=== PATIENT | male | born 1950 | race Caucasian/White ===

== ENCOUNTER 2018-08-02 22:12 | Emergency (ER) | payer OTHER ==
[~2018-08-02] VITALS: Ht 177.8 cm; Wt 102.5 kg
[2018-08-02 22:40] LABS: ABSOLUTE NEUTROPHILS 7.9 thou/uL (1.4-8.2); BASOPHILS 0.3 % (0.0-2.0); EOSINOPHILS 0.5 % (0.0-3.0); HEMATOCRIT 28.8 % (42.0-52.0); HEMOGLOBIN 9.9 gm/dL (14.0-18.0); LYMPHOCYTES 8.5 % (24.0-44.0); MCH 30.5 pg (26.0-34.0); MCHC 34.3 g/dL (28.0-37.0); MCV 88.8 fL (80.0-100.0); MONOCYTES 10.4 % (1.0-8.0); PLATELET COUNT 267 thou/uL (150-400); POLYS 80.3 % (36.0-66.0); RBC 3.24 mil/uL (4.50-6.00); RDW 12.8 % (10.5-14.5); WBC 9.8 thou/uL (4.0-11.0)
[2018-08-02 22:45] LABS: CALCIUM 8.8 mg/dL (8.5-10.1); CREATININE 1.6 mg/dL (0.7-1.3); POTASSIUM 3.8 mmol/L (3.5-5.1)
[2018-08-03] MEDS ORDERED: CLONIDINE HCL0.3 M3 PO (00:24)
[2018-08-03] MEDS ORDERED: MAXZIDE-25 MG1 EACH PO (00:27)
[2018-08-03] MEDS ORDERED: CARVEDILOL12.5 MG PO (00:28)
[2018-08-03] MEDS ORDERED: AMLODIPINE BESY10 MG PO (00:29)
[2018-08-03] MEDS ORDERED: SYNTHROID25 MC1 PO (00:29)
[2018-08-03] MEDS ORDERED: COZAAR 25 MG TA25 M1 PO (00:29)
[2018-08-03] MEDS ORDERED: METFORMIN HCL500 MG PO (00:30)
[2018-08-03 01:27] VITALS: BP 128/74
--- NOTE | 2018-08-03 08:29 | EKG ---
[place] [address] [facility] [place] [address] ELECTROCARDIOGRAM REPORT Name: MATA COHEN Room #: [id number] ������������������ Admission: 08/02/18 ������������������ Attend Phys: Discharge: 08/03/18 ������������������ Date of : 50 Report #: [id number] ����������������������������������������������������������������� [id number] THIS REPORT FOR: //name// [facility] ED Test Date: 2018-08-02 Test Time: 22:15:26 Pat Name: MATA COHEN Department: Room: Gender: Fruit Thinner: Gallito Zimmerman : 1950 Requested By: Ang Tong Order Number: [id number] MD: Ned Jeff Measurements Intervals [place] Rate: 96 P: 38 [place]: 141 QRS: 30 QRSD: 89 T: 52 QT: 348 QTc: 440 Interpretive Statements Sinus rhythm Nonspecific T wave abnormality No previous ECG available for comparison Electronically Signed On 08-03-2018 8:28:57 CDT by Ned Jeff [email or web address] ��������������������������������������������� <ELECTRONICALLY SIGNED> ���������������������������������������� By: Ned Jeff MD, [facility] ��������������������������������������������� 08/03/18 0828 2215 2214 Ned Jeff MD, FACC /EPI
== END 2018-08-03 01:31 ==
LOC: ER 22:12
PROVIDERS: Emergency Medicine
DX: S80.02XA Contusion of left knee, initial encounter (principal); G89.18 Other acute postprocedural pain; I10 Essential (primary) hypertension; Z88.0 Allergy status to penicillin; Z96.652 Presence of left artificial knee joint; X58.XXXA Exposure to other specified factors, initial encounter; Y92.89 Other specified places as the place of occurrence of the external cause; Y93.89 Activity, other specified; Y99.8 Other external cause status